=== PATIENT | female | born 1930 | race Caucasian/White ===

== ENCOUNTER 2016-10-13 19:38 | Inpatient (IN) | payer OTHER, MEDICARE ==
[~2016-10-13] VITALS: Ht 121.9 cm; Wt 50.3 kg
[~2016-10-13 19:38] MED LIST: ZOFRAN ODT4 MG SL
--- NOTE | 2016-10-13 20:07 | NUR ---
PT SENT TO ED FROM WALK IN S/P TRIP AND FALL AT HOME AT 3 PM THIS AFTERNOON. DENIES LOC. NO BLOOD THINNERS. STATES HAS SKIN TEAR TO LEFT ELBOW. GOOD ROM TO LEFT ELBOW. WAS BANDAGED AT WALK IN. STATES HIT HEAD WHEN SHE FELL. DENIES N/V. TOOK 1000 MG TYLENOL AT 1600 WITH GOOD RELIEF OF ELBOW PAIN
--- NOTE | 2016-10-13 21:05 | ED MVC/FALL/TRAUMA COMPLAINT ---
See Addendum History of Present Illness General Chief Complaint: Fall Stated Complaint: PT FALL AND HURT HER LEFT ARM Source: patient Exam Limitations: no limitations Vital Signs & Intake/Output Vital Signs & Intake/Output Vital Signs Date Time Temp Pulse Resp B/P B/P Pulse O2 O2 Flow FiO2 Mean Ox Delivery Rate 10/14 2203 98.6 96 18 148/65 99 10/13 2114 100 Room Air 10/13 2002 98.6 68 18 151/75 97 Room Air ED Intake and Output 10/14 0000 10/13 1200 Intake Total Output Total Balance Patient 99 lb 15.99 oz Weight Weight Reported by Patient Measurement Method Allergies Coded Allergies: cephalexin (RASH 10/13/16) clonazepam ("KNOCKED ME OUT" 10/13/16) gabapentin (UNKNOWN REACTION 10/13/16) morphine (GI UPSET, "KNOCKED ME OUT" 10/13/16) Reconcile Medications Ondansetron (Zofran Odt) 4 MG TAB.RAPDIS 1 TAB SL Q6-PRN PRN NAUSEA Triage Note: PT SENT TO ED FROM WALK IN S/P TRIP AND FALL AT HOME AT 3 PM THIS AFTERNOON. DENIES LOC. NO BLOOD THINNERS. STATES HAS SKIN TEAR TO LEFT ELBOW. GOOD ROM TO LEFT ELBOW. WAS BANDAGED AT WALK IN. STATES HIT HEAD WHEN SHE FELL. DENIES N/V. TOOK 1000 MG TYLENOL AT 1600 WITH GOOD RELIEF OF ELBOW PAIN Triage Nurses Notes Reviewed? yes Onset: Abrupt Duration: minute(s):, hour(s):, constant Timing: single episode today Severity: moderate Injuries/Fall Location: head, upper extremity Method of Injury: fall Loss of Consciousness: no loss of consciousness No Modifying Factors: none HPI: 86-year-old female comes into the emergency room for further evaluation after falling after missing a step. Patient reports that she missed 1 step and fell forward and hit her head into the door and as well as her left arm. Denies any loss of consciousness. Denies any headaches. Denies any anticoagulants or neck pain.patient has a skin tear to her left elbow. Patient went to the walk-in clinic and they sent her here for further evaluation. Denies any other associated symptoms. (TIM CARDONA,CRYSTAL) Past History Travel History Traveled to [place] past 21 day No Medical History Any Pertinent Medical History? see below for history EENT: SWALLOW ISSUES Cardiovascular: hypertension, hyperlipidemia Gastrointestinal: diverticulitis, GERD Endocrine: diabetes Other Medical Hx: Hypertension, hyperlipidemia, diabetes Tetanus Vaccine: 08/29/14 Surgical History Surgical History: non-contributory Psychosocial History What is your primary language Malay Tobacco Use: Never used ETOH Use: denies use Illicit Drug Use: denies illicit drug use Family History Hx Contributory? No (CRYSTAL CHAPMAN) Review of Systems Review of Systems Constitutional: Reports: no symptoms. Eyes: Reports: no symptoms. Ears, Nose, Throat, Mouth: Reports: no symptoms. Respiratory: Reports: no symptoms. Cardiovascular: Reports: no symptoms. Gastrointestinal/Abdominal: Reports: no symptoms. Genitourinary: Reports: no symptoms. Musculoskeletal: Reports: see HPI. Skin: Reports: no symptoms. Neurological/Psychological: Reports: see HPI. All Other Systems: Reviewed and Negative (CRYSTAL CHAPMAN) Physical Exam Physical Exam General Appearance: well developed/nourished, no apparent distress, alert, awake Head: atraumatic, normal appearance Eyes: Bilateral: PERRL, EOMI. Ears, Nose, Throat, Mouth: hearing grossly normal, moist mucous membrane Neck: normal inspection, supple, full range of motion, no midline tenderness Respiratory: normal breath sounds, no respiratory distress Back: normal range of motion Extremities: bruising to left upper humerus, bruising to left elbow, skin tear superficial epidermis, associated bleeding, Neurologic/Psych: awake, alert, oriented x 3, normal gait, normal mood/affect Skin: intact, normal color Core Measures ACS in differential dx? No Severe Sepsis Present: No Septic Shock Present: No (CRYSTAL CHAPMAN) Progress Differential Diagnosis: abd injury, C/T/L spine injury, ext injury, ICH, pelvis injury, pnemothorax, spinal cord injury Plan of Care: Orders Procedure Date/time Status Admit to inpatient 10/14 2355 Active Patient Data 10/13 2354 Active EKG 10/13 2250 Active PARTIAL THROMBOPLASTIN TIME 10/13 2224 Complete PROTHROMBIN TIME 10/13 2224 Complete COMPREHENSIVE METABOLIC PANEL 10/13 2224 Complete CBC WITHOUT DIFFERENTIAL 10/13 2224 Complete Laboratory Tests 10/13/16 2310: Anion Gap 14, Estimated GFR 60, BUN/Creatinine Ratio 25.6 H, Glucose 101 H, Calcium 10.0, Total Bilirubin 0.7, AST 27, ALT 35, Alkaline Phosphatase 156 H, Total Protein 7.3, Albumin 4.2, Globulin 3.1, Albumin/Globulin Ratio 1.4 10/13/16 2230: PT 11.0, INR 1.05, APTT 33, CBC w Diff NO MAN DIFF REQ, RBC 4.13 L, MCV 94.2, MCH 31.6 H, RDW 13.0, MPV 8.6, Gran % 73.2, Lymphocytes % 14.7 L, Monocytes % 9.1, Eosinophils % 2.6, Basophils % 0.4, Absolute Granulocytes 5.7, Absolute Lymphocytes 1.2, Absolute Monocytes 0.7 H, Absolute Eosinophils 0.2, Absolute Basophils 0, PUBS MCHC 33.5 Diagnostic Imaging: Viewed by Me: Radiology Read, CT Scan. Discussed w/RAD: Radiology Read, CT Scan. Radiology Impression: SERVICE DATE: 10/13/16 EXAM TYPE: RAD - XRY-ELBOW 3 OR MORE VIEWS, L; XRY-SHOULDER COMPLETE-LEFT EXAMINATION: XR SHOULDER, LEFT Left elbow series CLINICAL INFORMATION: Trauma fall COMPARISON: None TECHNIQUE: 3 views of the left shoulder 3 views of the left elbow FINDINGS: Left shoulder: There is superior subluxation of the humeral head with the bone appearing to touch the undersurface of the acromion indicative of rotator cuff tear. There is moderate acromioclavicular arthrosis. Possible mild arthrosis of the glenohumeral joint. The surrounding bone and soft tissues are unremarkable. Left elbow: The bone and joints of the elbow are normal. There is a small oval-shaped 6 x 3 x 3 mm calcification posterior and lateral to the proximal ulna of uncertain etiology likely benign and likely dystrophic related to prior soft tissue injury. IMPRESSION: Left shoulder: Moderate acromioclavicular arthrosis and possible mild arthrosis of glenohumeral joint. Probable rotator cuff tear given the superior subluxation of the humeral head Left elbow: Soft tissue calcification as described may reflect old soft tissue trauma DICTATED BY: ALEXANDREA PUENTE MD DATE/TIME DICTATED:10/13/162148 [employer]: SELENA DATE/TIME TRANSCRIBED:10/13/162148 CONFIDENTIAL, DO NOT COPY WITHOUT APPROPRIATE AUTHORIZATION., SERVICE DATE: 10/13/16 EXAM TYPE: CAT - CT HEAD WO IV CONTRAST EXAMINATION: CT HEAD WITHOUT CONTRAST CLINICAL INFORMATION: Trauma. Fall. COMPARISON: CT scan of the head 02/28/2014. TECHNIQUE : Contiguous axial imaging was performed from the skull base to vertex without intravenous administration of contrast. DLP: 529.16 mGy-cm FINDINGS: There is increased density in a sulcus in the right parietal region (image 34/56, series 2 and image 148/199, series 601). This is consistent with a small amount of subarachnoid hemorrhage. Density in this region was not demonstrated on the prior study. There is no evidence of a subdural or epidural hematoma. There is no evidence of an acute territorial infarct. No abnormal mass effect or midline shift is seen. Brown to white matter differentiation is well preserved. The ventricles and sulci are slightly commensurately prominent consistent with mild diffuse volume loss. Patchy low attenuation in the periventricular white matter is consistent with chronic microvascular ischemic changes. There are no acute fractures. 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 There are relatively extensive atheromatous calcifications of the cavernous internal carotid arteries bilaterally. 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 There are no large scalp contusions or hematomas. The mastoid air cells and visualized portions of the paranasal sinuses are well aerated. IMPRESSION: 1. There is increased density in a sulcus in the right parietal region, which is consistent with a small amount of subarachnoid hemorrhage. 2. No subdural or epidural collections are demonstrated. 3. There are no fractures or large scalp contusions. 4. This critical result was discussed with Crystal Casas by telephone on 10/13/2016 10:21 PM and it was ascertained that the content and urgency of the report was understood at the time of direct communication. DICTATED BY: CIRILO TORRES MD DATE/TIME DICTATED:10/13/162142 [employer] :SELENA DATE/TIME TRANSCRIBED:10/13/162142 Initial ED EKG: normal intervals, normal p-waves, normal sinus rhythm, rate (90) (CRYSTAL CHAPMAN) Departure Departure Disposition: STILL A PATIENT Condition: Stable Clinical Impression Primary Impression: Subarachnoid hemorrhage Secondary Impressions: Skin abrasion Referrals: NORRIS LESTER MD (PCP/Family) Departure Forms: Customer Survey General Discharge Information Admission Note Spoke With: MARY CANO MD Documentation of Exam: Documentation of any treatments & extenuating circumstances including Concerns Regarding Discharge (functional status, medication knowledge or non-compliance, living conditions, etc.) that warrant an admission rather than observation: Patient has acute subarachnoid hemorrhage. Patient will require repeat CT scan. Neurosurgery consult. Close observation. Serial vital sign checks. Hospitalist wants the patient to be observed in the ICU overnight. (CRYSTAL CHAPMAN) PA/PRODUCTION WELDER Co-Sign Statement Statement: ED Attending supervision documentation- x I saw and evaluated the patient. I have also reviewed all the pertinent lab results and diagnostic results. I agree with the findings and the plan of care as documented in the PA's/PRODUCTION WELDER's documentation. [] I have reviewed the ED Record and agree with the PA's/PRODUCTION WELDER's documentation. [] Additions or exceptions (if any) to the PAs/PRODUCTION WELDER's note and plan are summarized below: [] (ALISON MCGOVERN,CLAY)
--- NOTE | 2016-10-13 21:14 | NUR ---
DULCE Gil IN RM FOR EVAL, THIS RN APPLIED XEROFORM AND AN HEMANT WRAP TO PTS LEFT ELBOW 3X3? SKIN TEAR. PT TO CT /XRAY VIA STRETCHER
--- NOTE | 2016-10-13 21:57 | RADIOLOGY REPORT ---
EXAMINATION: XR SHOULDER, LEFT Left elbow series CLINICAL INFORMATION: Trauma fall COMPARISON: None TECHNIQUE: 3 views of the left shoulder 3 views of the left elbow FINDINGS: Left shoulder: There is superior subluxation of the humeral head with the bone appearing to touch the undersurface of the acromion indicative of rotator cuff tear. There is moderate acromioclavicular arthrosis. Possible mild arthrosis of the glenohumeral joint. The surrounding bone and soft tissues are unremarkable. Left elbow: The bone and joints of the elbow are normal. There is a small oval-shaped 6 x 3 x 3 mm calcification posterior and lateral to the proximal ulna of uncertain etiology likely benign and likely dystrophic related to prior soft tissue injury. IMPRESSION: Left shoulder: Moderate acromioclavicular arthrosis and possible mild arthrosis of glenohumeral joint. Probable rotator cuff tear given the superior subluxation of the humeral head Left elbow: Soft tissue calcification as described may reflect old soft tissue trauma
--- NOTE | 2016-10-13 22:03 | NUR ---
PT MEDICATED WITH TETANUS IN RIGHT ARM. LIGHTS DIMMED AND TV TURNED ON FOR COMFORT\.
--- NOTE | 2016-10-13 22:25 | CT SCAN REPORT ---
EXAMINATION: CT HEAD WITHOUT CONTRAST CLINICAL INFORMATION: Trauma. Fall. COMPARISON: CT scan of the head 02/28/2014. TECHNIQUE: Contiguous axial imaging was performed from the skull base to vertex without intravenous administration of contrast. DLP: 529.16 mGy-cm FINDINGS: There is increased density in a sulcus in the right parietal region (image 34/56, series 2 and image 148/199, series 601). This is consistent with a small amount of subarachnoid hemorrhage. Density in this region was not demonstrated on the prior study. There is no evidence of a subdural or epidural hematoma. There is no evidence of an acute territorial infarct. No abnormal mass effect or midline shift is seen. Brown to white matter differentiation is well preserved. The ventricles and sulci are slightly commensurately prominent consistent with mild diffuse volume loss. Patchy low attenuation in the periventricular white matter is consistent with chronic microvascular ischemic changes. There are no acute fractures. 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 There are relatively extensive atheromatous calcifications of the cavernous internal carotid arteries bilaterally. 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 There are no large scalp contusions or hematomas. The mastoid air cells and visualized portions of the paranasal sinuses are well aerated. IMPRESSION: 1. There is increased density in a sulcus in the right parietal region, which is consistent with a small amount of subarachnoid hemorrhage. 2. No subdural or epidural collections are demonstrated. 3. There are no fractures or large scalp contusions. 4. This critical result was discussed with Han Casas by telephone on 10/13/2016 10:21 PM and it was ascertained that the content and urgency of the report was understood at the time of direct communication.
--- NOTE | 2016-10-13 22:27 | NUR ---
THIS RN ESTABLISHED IV ACCESS IN THE RFA#22, LABS DRAWN (SST, LAV, DONOVAN, BLUE,PINK)
--- NOTE | 2016-10-13 22:28 | NUR ---
PTS IN RM, THIS RNAND DULCE Gil DID NOT SEE ANY LACS/ BUMPS TO PTS HEAD.
[2016-10-13 22:37] LABS: ABSOLUTE BASOPHIL COUNT 0 /CUMM (0.0-0.2); ABSOLUTE EOSINOPHIL COUNT 0.2 /CUMM (0.0-0.7); ABSOLUTE GRANULOCYTE CT 5.7 /CUMM (1.4-6.5); ABSOLUTE LYMPH COUNT 1.2 /CUMM (1.2-3.4); ABSOLUTE MONOCYTE COUNT 0.7 /CUMM (0.10-0.60); BASOPHIL % 0.4 % (0.0-2.0); EOSINOPHIL % 2.6 % (0-5); GRANULOCYTE % 73.2 % (42.2-75.2); HEMATOCRIT 38.9 % (37-47); MEAN CORPUSCULAR HGB 31.6 PG (27.0-31.0); MEAN CORPUSCULAR HGB CONC 33.5 G/DL (33.0-37.0); MEAN CORPUSCULAR VOLUME 94.2 FL (81.0-99.0); MEAN PLATELET VOLUME 8.6 FL (7.4-10.4); PLATELET COUNT 228 /CUMM (130-400); RED BLOOD CELL CT 4.13 /CUMM (4.20-5.40); WHITE BLOOD CELL COUNT 7.8 /CUMM (4.8-10.8)
--- NOTE | 2016-10-13 22:53 | NUR ---
PER LAB, SST IS HEMOLYZED AND NEEDS TO BE REDRAWN.
[2016-10-13 22:56] LABS: PTT 33 SEC (25-37)
--- NOTE | 2016-10-13 22:58 | NUR ---
THIS RN KELLEY AND SENT SST REDRAW
--- NOTE | 2016-10-13 23:13 | NUR ---
REPEAT TROP DRAWN AND SENT BY THIS RN
--- NOTE | 2016-10-14 | History & Physical ---
ELENO LARSEN MD 10/13/16 3533: General Information and HPI MD Statement: I have seen and personally examined GUCCI BRYAN and documented this H&P. The patient is a 86 year old F who presented with a patient stated chief complaint of fall. Source of Information: patient Exam Limitations: poor historian History of Present Illness: Ms. Bryan is a pleasant 86 year old female with PMH HTN, HLD, GERD, type 2 DM and previous episode of diverticulitis who presents status post fall. Patient reports that this morning she was walking down her stairs when she tripped and fell down 2 stairs. This resulted in a head, left shoulder and left elbow strike. Patient is not on blood thinners, did not lose consciousness during the event, no loss of bowel/bladder incontinence, had no preceding dizziness/light headedness, and had no subsequent headache. Gucci was unable to lift herself off the floor however, as she reported she was too weak at that time. She remained on the floor and waited for 60 minutes until her grandson was able to come over and lift her. Gucci does report one prior fall in her garden about 1 year ago where she lost her balance and a plant was knocked over. At that time, she injured her right shoulder which she elected not to repair. Currently, she denies fever, chills, vision changes, headache, weakness, difficulty ambulating, chest pain, shortness of breath, abdominal pain, nausea, vomiting. She does admit to left forearm skin tear, left shoulder brusing and generalized feeling of being unwell once this afternoon for which she took tylenol. She did endorse one episode of dizziness during micturition. Past surgical history is significant for hysterectomy for benign reasons, cholecystectomy and partial coccyx bone removal. Social history is negative for current or prior tobacco use, alcohol use or illicit drug use. She lives at home with her and ambulates without assistance. She completes all of her ADLs and IADLs independently. Of note, patient requests that if any deterioration in her condition were to happen, she would like her structural steel worker informed. Father Jayme at [facility], . Allergies/Medications Allergies: Coded Allergies: cephalexin (RASH 10/13/16) clonazepam ("KNOCKED ME OUT" 10/13/16) gabapentin (UNKNOWN REACTION 10/13/16) morphine (GI UPSET, "KNOCKED ME OUT" 10/13/16) Compliance With Home Meds: FAIR Past History Travel History Traveled to [place] past 21 day No Medical History EENT: SWALLOW ISSUES Cardiovascular: hypertension, hyperlipidemia Gastrointestinal: diverticulitis, GERD Endocrine: diabetes Other Medical Hx: Hypertension, hyperlipidemia, diabetes Tetanus Vaccine: 10/13/16 Surgical History Surgical History: non-contributory Past Family/Social History Psychosocial History Where do you live? Home Who Do You Live With? spouse Services at Home: None Primary Language: German Smoking Status: Never Smoked ETOH Use: denies use Illicit Drug Use: denies illicit drug use Living Will? yes Functional Ability ADLs Independent: dressing, eating, toileting, bathing. Ambulation: independent IADLs Independent: shopping, housework, finances, food prep, telephone, transportation , medication admin. Review of Systems Review of Systems Constitutional: Denies: chills, fever, malaise, weakness. EENTM: Denies: blurred vision, double vision, visual changes, hearing changes. Cardiovascular: Denies: chest pain, palpitations, syncope. Respiratory: Denies: cough, short of breath. GI: Denies: abdominal pain, nausea, vomiting. Genitourinary: Denies: dysuria. Musculoskeletal: Reports: gout, joint pain, muscle pain. Skin: Reports: lesions (Left upper arm abrasion/bruise). Neurological/Psychological: Denies: ataxia, confusion, headache, numbness, paresthesia. Hematologic/Endocrine: Reports: bruising, bleeding. Immunologic/Allergic: Denies: splenectomy. All Other Systems: Reviewed and Negative Exam & Diagnostic Data Last 24 Hrs of Vital Signs/I&O Vital Signs Date Time Temp Pulse Resp B/P B/P Pulse O2 O2 Flow FiO2 Mean Ox Delivery Rate 10/14 0024 98.6 60 18 157/70 98 Room Air 10/134 98.6 96 18 148/65 99 10/13 2114 100 Room Air 10/13 2002 98.6 68 18 151/75 97 Room Air Intake & Output 10/14 0800 10/14 0000 10/13 1600 Intake Total Output Total 200 Balance -200 Output, Urine 200 Patient 99 lb 15.99 oz Weight Weight Reported by Patient Measurement Method Physical Exam General Appearance Alert, Oriented X3, Cooperative, No Acute Distress Skin Left anterior shoulder bruise. Left lower arm and left upper forearm wrapped in janel bandage. Skin Temp/Moisture Exam: Warm/Dry Sepsis Skin Exam (color): Normal for Ethnicity HEENT Atraumatic, PERRLA, EOMI, Mucous Membr. moist/pink Neck Supple, +2 Carotid Pulse wo Bruit Lymphatic Cervical nl Cardiovascular Regular Rate, Normal S1, Normal S2, 1-2/6 systolic murmur Lungs Clear to Auscultation, Normal Air Movement Abdomen Normal Bowel Sounds, Soft, No Tenderness Neurological Normal Speech, Strength at 5/5 X4 Ext, Normal Tone, Sensation Intact, Cranial Nerves 3-12 NL Extremities No Clubbing, No Cyanosis, No Edema, Normal Pulses Vascular Pulses Symmetrical Sepsis Peripheral Pulse Location: Dorsalis Pedis Sepsis Peripheral Pulse Exam: Normal Last 24 Hrs of Labs/Gus: Laboratory Tests 10/13/16 2310: Anion Gap 14, Estimated GFR 60, BUN/Creatinine Ratio 25.6 H, Glucose 101 H, Calcium 10.0, Total Bilirubin 0.7, AST 27, ALT 35, Alkaline Phosphatase 156 H, Total Protein 7.3, Albumin 4.2, Globulin 3.1, Albumin/Globulin Ratio 1.4 10/13/16 2230: PT 11.0, INR 1.05, APTT 33, CBC w Diff NO MAN DIFF REQ, RBC 4.13 L, MCV 94.2, MCH 31.6 H, RDW 13.0, MPV 8.6, Gran % 73.2, Lymphocytes % 14.7 L, Monocytes % 9.1, Eosinophils % 2.6, Basophils % 0.4, Absolute Granulocytes 5.7, Absolute Lymphocytes 1.2, Absolute Monocytes 0.7 H, Absolute Eosinophils 0.2, Absolute Basophils 0, PUBS MCHC 33.5 Diagnostic Data EKG Results NSR, HR 62 bpm, QTC 419, PVCs, T wave inv aVL. CXR Results Left upper extremity XR: IMPRESSION: Left shoulder: Moderate acromioclavicular arthrosis and possible mild arthrosis of glenohumeral joint. Probable rotator cuff tear given the superior subluxation of the humeral head Left elbow: Soft tissue calcification as described may reflect old soft tissue trauma Other Results Head CT: IMPRESSION: 1. There is increased density in a sulcus in the right parietal region, which is consistent with a small amount of subarachnoid hemorrhage. 2. No subdural or epidural collections are demonstrated. 3. There are no fractures or large scalp contusions. Assessment/Plan Assessment: Ms. Bryan is a pleasant 86 year old female with PMH HTN, HLD, GERD, type 2 DM and previous episode of diverticulitis who presents status post fall with abrasions to her left upper extremity. The fall was down two steps and caused by "missing a step". She was noted to hit her head, left shoulder and left elbow during this and remained on the ground for 1 hour before help was able to lift her up. On imaging of the patient's head while in the ED, a small subarachnoid hemorrhage was noted. Patient is currently asymptomatic without any complaints, specifically no dizziness, headache, vision changes, tinnitus or weakness. In the ED: T 98.6, HR 68, RR 18, BP 151/75 and O2 saturation of 97% on room air. Labs showed unremarkable CBC and BEP significant for BUN 23, Glu 101, alk phos 156 and INR 1.05. Xray of left upper extremity showed left shoulder moderate AC arthrosis and possible arthrosis of glenohumeral joint. Probably rotator cuff tear. Left elbow showed soft tissue calcification representing likely old soft tissue trauma. Head CT showed small subarachnoid hemorrhage in a sulcus in the right parietal region. No subdural or epidural collections. No fractures or scalp contusions. Patient is admitted to the ICU and the following is the management: 1. Small right parietal subarachnoid hemorrhage * Due to fall down 2 steps with subsequent trauma to her head * Neuro exam completely non-focal, patient AAOx4 and age appropriate * Close monitoring in ICU for any change in mental status or development of new neurological symptoms. If any changes noted, consider stat repeat head CT. * Neurochecks Q1H, keep NPO for now * Check CK * Strict blood pressure control * Neurosurgery consult with Dr. Nito MD. placed for AM, follow up recommendations * Head CT ordered for afternoon of 10/14, discuss with neurosurgery if this is needed * Hold all pharm anticoagulation, ALPS for DVTP 2. Mechanical fall with left upper extremity contusion, arthrosis and rotator cuff pathologyl * Likely a mechanical fall, however will keep patient on monitoring manager * Skin tear not suitable to suturing, local wound care * Pain control with tylenol for mild pain, morphine for severe pain * PT consult in AM * Fall precuations 3. HTN, HLD * Monitor vital signs closely * Patient unsure of medications, to bring list of home meds for AM team to confirm * Lipitor 10 mg PO daily and amlodipine 2.5 mg PO daily for now 4. DM, type 2 * Patient reports she is on metformin, hold for now * NPO NSS * Accuchecks Q6 FULL CODE DVTP: ALPS Diet: NPO Mild pain pathway As Ranked By This Provider Problem List: 1. Contusion, shoulder /upper arm 2. Fall 3. Avulsion of skin of left elbow 4. Subarachnoid hemorrhage Core Measures/Miscellaneous Acute Coronary Syndrome ACS Diagnosis: No Cerebrovascular Accident CVA/TIA Diagnosis: No Congestive Heart Failure CHF Diagnosis: No Venous Thromboembolism VTE Risk Factors: Age > 40 No [facility] VTE prophylaxis d/t: No contraindications No VTE Pharm Prophylaxis d/t: Active bleeding VTE Diagnosis: No VTE Type: NONE VTE Confirmed by (Test): NONE Severe Sepsis Severe Sepsis Present: No Septic Shock Septic Shock Present: No Miscellaneous Documentation Attending Case [facility] Patient sees these Specialists None. Level of Patient Care: Critical Care (CRI) SAKSHI MUÑOZ 10/14/16 0047: General Information and HPI Allergies/Medications Home Med list Amlodipine (Norvasc) 2.5 MG TABLET 1 TAB PO DAILY HTN (Reported) Atorvastatin Calcium (Lipitor) 10 MG TABLET 1 TAB PO DAILY HYPERLIPIDEMIA ( Reported) Ondansetron (Zofran Odt) 4 MG TAB.RAPDIS 1 TAB SL Q6-PRN PRN NAUSEA Resident Review Statement Resident Statement: examined this patient, discussed with compensation intern, agreed with compensation intern Other Findings: Mrs. Bryan is an 86 yo women with PMHx. significant for HTN, HLD, GERD, type 2 DM and diverticulitis presented to ED for evaluation after mechanical fall. Patient stated that today while she going down the stairs she missed a couple steps and fell on her head and Lt. shoulder, she denies any LOC, after the fall she remains in the floor as she felt weak, could't support her self to get up, she was assissted by her and grand son later, she went to walk in clinic who refer her to . Prior to fall she denies any dizziness, vision changes, heart racing, chest pain, weakness, no other area injured. Patient in independent on her baseline, she did had any recent fall. She had a bruise at left shoulder and skin laceration on the left arm. She report some discomfort at the left arm, pain on the lt. shoulder resolved, she was completely asymptomatic during the encounter, review of system was negative. Vitals at ED was stable except for BP:151/75, examination: unremarkable, no focal neurological finding, she had a bruise over the left shoulder, and her left arm injury covered with clean gauze and bandages. Labs as above, EKG: SR, T -wave inversion @AVL, III. imaging: head CT: showed SAH in the Rt. parietal region, no fracture or large scalp contusion, other imaging as above. Assessment: #Mechanical fall with a resultant SAH @ parietal region #Hx. of diabetes #Hx. of HTN Plan: -Will admitt to ICU for close monitoring and frequent neurocheck -Consult with intesive care team at am -Neurovascular consult at am -Case was discussed by ED physician with oncall neurovaculr surgeon who report that no acute intervention at the moment -Will repeat imaging (CT-head in the afternoon to assess the resolution or any worsening of the Hge -Monitor BP, aim <140/80 -Avoid antiplatelete and antithrombotic meds -NPO over night, assess at am, and order diet if stable -Please confirm her home meds, she can't remember her med. list, her went home with the list please contact him -Insulin sliding scale, accucheck -Pain management -PT eval. -Fall precaution ALPS for DVT ppx Full code RACHAEL MCGOVERN, [facility] 10/14/16 0225: Attending MD Review Statement Attending Statement Attending MD Statement: examined this patient, discuss w/resident/PA/SPRINKLER FITTER APPRENTICE, agreed w/resident/PA/SPRINKLER FITTER APPRENTICE, reviewed EMR data (avail) Attending Assessment/Plan: 86 yo F with h/o HTN, T2DM, HLD, GERD, who is brought in to the ER s/p mechanical fall down the stairs at around 3 pm, with associated head strike but no loss of consciousness. She required help to get herself off the floor, was a litte dizzy after the episode but recovered completely. No headache, vision changes. She went to the Urgent Care center as her left arm was bruised, they sent her in to [place] ER for further evaluation. She denies chest pain, palpitations, dyspnea. She is not on aspirin or any blood thinners. Vitals are stable, BP 148/65. Exam: AAO, Pupils equal and RTL. Chest b/l clear, Heart S1S2 regular, systolic murmur+. Nonfocal neuro exam. Bruise noted to left shoulder, left elbow with superficial skin tear. Labs: BUN 23, INR 1.05, trop pending. EKG: Sinus rhythm, no acute changes. Xray: Left elbow: soft tissue calcification, ?old soft tissue trauma. Left shoulder: moderate acromioclavicular arthrosis. CT head: small right parietal subarachnoid hemorrhage, no subdural or epidural collections, no fractures or large scalp contusions. 1. Mechanical fall, subarachnoid hemorrhage. Hemodynamically stable, no altered mentation. ICU admit, neurochecks, fallprecautions, repeat CT head in 24 hours, Neurosurgery consult. Dr. Beauchamp was contacted by ER, no acute intervention at this point. Monitor for mental status change, headache, vision changes. Keep SBP < 140 mmHg. Resume amlodipine. Left elbow bruise/skin tear local wound care. Pain management. PT eval in AM. Keep patient NPO overnight. [facility] consult (Dr. Mccoy was informed by ER). 2. T2DM. Hold metformin, maintain on accucheks and insulin NPO SS. DVT ppx Alps. Full code. Please confirm CMR in AM and resume home medications. TTS > 40 mins
--- NOTE | 2016-10-14 00:42 | NUR ---
LETI LIAO ESTABLISHED IV SITE #2 IN RW #20.
--- NOTE | 2016-10-14 00:52 | NUR ---
BED 109
--- NOTE | 2016-10-14 00:54 | NUR ---
HOUSE STAFF IN FOR EVAL
--- NOTE | 2016-10-14 01:15 | NUR ---
THIS RN GAVE REPORT TO STEF OR PETER.
--- NOTE | 2016-10-14 01:33 | Admission Certification ---
Admission Certification Certification Statement - As attending physician, I certify that at the time of - admission, based on clinical presentation, severity of - symptoms, need for further diagnostic testing and - therapeutic interventions, and risk of adverse outcomes - without in-hospital treatment, in my clinical assessment, - this patient requires an acute hospital stay for a minimum - of two nights or longer. I have also considered psychsocial - factors such as support system, advanced age, financial - issues, cognitive issues, and failed out-patient treatments, - past re-admission history, safety of patient, and lack of - compliance as applicable. Specific rationale supporting this admission is: Mechanical fall, subarachnoid hemorrhage needs ICU level of care.
[2016-10-14 01:49] VITALS: BP 120/80
[2016-10-14] MEDS ORDERED: NORVASC2.5 M1 PO (01:51)
[2016-10-14] MEDS ORDERED: LIPITOR10 M1 PO (01:51)
--- NOTE | 2016-10-14 02:13 | NUR ---
ADMITTED AN 86 YEAR OLD FEMALE WHO FELL AT HOME. NO LOC. PT AWAKE AND ALERT, DENIES PAIN AT THIS TIME. NSR 70'S, MANUAL BP 120/80. SHE HAS A SKIN TEAR ON HER LEFT ELBOW, DRSSSING DRY AND INTACT. HER LEFT SHOULDER IS ALSO BRUISED FROM THE FALL. CT OF THE HEAD SHOWED SMALL BLEED ON THE RIGHT PARIETAL REGION. COMFORTABLE IN BED.
[2016-10-14 05:07] LABS: ABSOLUTE BASOPHIL COUNT 0 /CUMM (0.0-0.2); ABSOLUTE EOSINOPHIL COUNT 0.2 /CUMM (0.0-0.7); ABSOLUTE GRANULOCYTE CT 4.7 /CUMM (1.4-6.5); ABSOLUTE MONOCYTE COUNT 0.6 /CUMM (0.10-0.60); BASOPHIL % 0.4 % (0.0-2.0); EOSINOPHIL % 3.8 % (0-5); GRANULOCYTE % 71.4 % (42.2-75.2); HEMATOCRIT 35.7 % (37-47); MEAN CORPUSCULAR HGB 32.7 PG (27.0-31.0); MEAN CORPUSCULAR HGB CONC 34.7 G/DL (33.0-37.0); MEAN CORPUSCULAR VOLUME 94.2 FL (81.0-99.0); MEAN PLATELET VOLUME 9.2 FL (7.4-10.4); PLATELET COUNT 225 /CUMM (130-400); RBC DISTRIBUTION WIDTH 12.9 % (11.5-14.5); RED BLOOD CELL CT 3.79 /CUMM (4.20-5.40); WHITE BLOOD CELL COUNT 6.6 /CUMM (4.8-10.8)
[2016-10-14 08:00] VITALS: BP 120/74
--- NOTE | 2016-10-14 08:14 | NUR ---
0800: RECEIVED PT IN BED. A+OX3, PUPILS EQUAL REACTIVE. SLIGHT HEADACHE. DENIES BLURRY VISION. NO DIZZINESS. NSR ON MONITOR. VSS. LUNGS CLEAR, ON RA. DENIES SOB. ABDOMEN SOFT, +BS. PT OOB TO BATHROOM WITH MINIMAL ASSISTANCE, VOIDED IN TOILET. +FLATUS. REQUESTING TO EAT. HOUSE STAFF AWARE PT IS NPO, ? DIET. SKIN TEAR TO LEFT ELBOW, DRESSING IN PLACE. SKIN OTHERWISE INTACT. ALPS ON. PT OOB TO CHAIR. TO HAVE HEAD CT AT 3PM.
--- NOTE | 2016-10-14 08:49 | Event Note ---
Event Note Event Note: Contacted by neurosurgeon Dr. Beauchamp regarding the management for the patient' s SAH. Dr. Beauchamp advised that given the miniscule size of hemorrhage there is no surgical intervention needed as long as the patient remains neurologically intact and hemodynamically stable. Dr. Beauchamp recommended that patient be discharged if patient is medically stable.
--- NOTE | 2016-10-14 09:10 | NUR ---
EKG DONE. DR BAZAN AT BEDSIDE.
--- NOTE | 2016-10-14 10:25 | Patient Discharge Instructions ---
Discharge Instructions General Discharge Information Special Instructions: Please follow up with PCP upon discharge. Please return to ER in case of worsening headache, weakness, lethargy, vision, speech (neurological deficiet) Please use walker or cane at home to ambulate. Local wound care for left arm tear, daily dressing change with Adaptic. Acute Coronary Syndrome Inclusion Criteria At DC or during hospital stay patient has or had the following: ACS DIAGNOSIS No Discharge Core Measures Meds if any: Prescribed or Continued at Discharge Meds if any: NOT Prescribed or Continued at Discharge Congestive Heart Failure Inclusion Criteria At DC or during hospital stay patient has or had the following: CHF DIAGNOSIS No Discharge Core Measures Meds if any: Prescribed or Continued at Discharge Meds if any: NOT Prescribed or Continued at Discharge Cerebrovascular accident Inclusion Criteria At DC or during hospital stay patient has or had the following: CVA/TIA Diagnosis No Discharge Core Measures Meds if any: Prescribed or Continued at Discharge Meds if any: NOT Prescribed or Continued at Discharge Venous thromboembolism Inclusion Criteria VTE Diagnosis No VTE Type NONE VTE Confirmed by (Test) NONE Discharge Core Measures - Per Current guidelines, there needs to be overlap - treatment for the first 5 days of Warfarin therapy. - If discharged on Warfarin prior to 5 days of - overlap therapy, the patient will need to be - assessed for post discharge needs including - *Post discharge parental anticoagulation - *Warfarin and/or parental anticoagulation education - *Follow up date to check INR post discharge At least 5 days overlap therapy as Inpatient No Meds if any: Prescribed or Continued at Discharge Note: Overlap Therapy is Warfarin and Anticoagulant Meds if any: NOT Prescribed or Continued at Discharge
[2016-10-14] MEDS ORDERED: DITROPAN XL10 M1 PO (10:34)
[2016-10-14] MEDS ORDERED: PANTOPRAZOLE SO40 M1 PO (10:35)
[2016-10-14] MEDS ORDERED: METFORMIN HCL500 M2 PO (10:35)
--- NOTE | 2016-10-14 11:14 | NUR ---
PT COMPLAINING OF LIGHTHEADEDNESS AND BLURRY VISION. B/P 130/60. MD CONNELLY AT BEDSIDE TO ASSESS.
[2016-10-14 16:00] VITALS: BP 130/68
[2016-10-14 22:38] VITALS: BP 136/74
--- NOTE | 2016-10-15 00:52 | NUR ---
PT REPORTS NEW PAIN 8/10 H/A. THEN REPORTS NAUSEA ABOUT TWO MINUTES AFTER THAT. MD LARSEN NOTIFIED.
[2016-10-15 01:17] VITALS: BP 150/70
--- NOTE | 2016-10-15 01:21 | Event Note ---
Event Note Event Note: Notified by nursing staff around 12:45 AM that patient had developed acute onset headache. This headache was frontal, 8/10 and associated with nausea and mild neck pain. Vital signs stable. Patient appeared in no acute distress laying in bed. Neuro exam was nonfocal, with CN 3-12 grossly intact, muscle strength appropriate and patient AAOx3. Patient discussed with resident and we will order stat head CT to rule out worsening of SAH or new bleed. Patient requests only tylenol for pain. Head CT shows stable appearance of SAH. Will continue with pain management as needed and order zofran for nausea. Will monitor patient closely throughout the night and make AM team aware of overnight events.
--- NOTE | 2016-10-15 01:28 | NUR ---
PT OFF FLOOR FOR STAT HEAD CT.
--- NOTE | 2016-10-15 01:45 | CT SCAN REPORT ---
EXAMINATION: CT HEAD WITHOUT CONTRAST CLINICAL INFORMATION: Severe headache. Nausea and neck pain. COMPARISON: 10/13/2016 TECHNIQUE: Contiguous axial imaging was performed from the skull base to vertex without intravenous administration of contrast. DLP: 601 mGy-cm FINDINGS: There is redemonstration of a small amount of right parietal subarachnoid hemorrhage. This is unchanged from the previous study. There is no new hemorrhage. There is no evidence of acute intraparenchymal hemorrhage or territorial infarction. No abnormal mass effect or midline shift is seen. Brown to white matter differentiation is well preserved. The ventricles are normal in size. Mild patchy periventricular and deep white matter hypoattenuation is consistent with small vessel ischemic change. The osseous structures and soft tissues are normal. The mastoid air cells and visualized portions of the paranasal sinuses are well aerated. IMPRESSION: Stable small right parietal subarachnoid hemorrhage. No new hemorrhage.
[2016-10-15 07:09] VITALS: BP 120/60
[2016-10-15 08:07] LABS: ABSOLUTE BASOPHIL COUNT 0 /CUMM (0.0-0.2); ABSOLUTE EOSINOPHIL COUNT 0.3 /CUMM (0.0-0.7); ABSOLUTE LYMPH COUNT 1.1 /CUMM (1.2-3.4); ABSOLUTE MONOCYTE COUNT 0.5 /CUMM (0.10-0.60); BASOPHIL % 0.4 % (0.0-2.0); EOSINOPHIL % 4.5 % (0-5); GRANULOCYTE % 68.1 % (42.2-75.2); HEMATOCRIT 34.8 % (37-47); MEAN CORPUSCULAR HGB 32.5 PG (27.0-31.0); MEAN CORPUSCULAR HGB CONC 34.3 G/DL (33.0-37.0); MEAN CORPUSCULAR VOLUME 94.7 FL (81.0-99.0); PLATELET COUNT 221 /CUMM (130-400); RBC DISTRIBUTION WIDTH 13.1 % (11.5-14.5); RED BLOOD CELL CT 3.68 /CUMM (4.20-5.40); WHITE BLOOD CELL COUNT 5.9 /CUMM (4.8-10.8)
--- NOTE | 2016-10-15 08:17 | PN- Housestaff ---
CARSON MCGOVERN,DIANA 10/15/16 0817: Subjective Follow-up For: #Mechanical fall with a resultant SAH @ parietal region #Hx. of diabetes #Hx. of HTN Subjective: Patient seen and examined at bedside. She reports feeling well with no complaints. Had a bad headache last night but it's pretty much resolved this morning, currently at 0-1, well-controlled with Tylenol. Denies any f/c, chest pain, dyspnea, palpitations, dizziness/lightheadedness, abdominal pain, n/v/c/d. She says she is ready to go home. Review of Systems Constitutional: Reports: see HPI. Objective Last 24 Hrs of Vital Signs/I&O Vital Signs Date Time Temp Pulse Resp B/P B/P Pulse O2 O2 Flow FiO2 Mean Ox Delivery Rate 10/15 0709 97.9 66 20 120/60 96 Room Air 10/15 0117 97.9 72 20 150/70 96 Room Air 10/14 2238 98.2 72 20 136/74 96 Room Air 10/14 2000 Room Air 10/14 1600 98.5 74 18 130/68 96 Room Air 10/14 0943 75 161/59 Intake & Output 10/15 1600 10/15 0800 10/15 0000 Intake Total 260 140 Output Total Balance 260 140 Intake, IV 20 20 Intake, Oral 240 120 Physical Exam General Appearance: Alert, Cooperative, No Acute Distress Other Physical Findings: Eyes: Bilateral: normal appearance, PERRL, EOMI. Ears, Nose, Throat: normal pharynx, normal ENT inspection, hearing grossly normal, moist mucus membranes Neck: normal inspection, supple, full range of motion Respiratory: normal breath sounds, chest non-tender, lungs clear Cardiovascular: regular rate/rhythm Gastrointestinal: normal bowel sounds, soft, non-tender, no organomegaly Back: normal inspection Extremities: normal inspection, Left Shoulder wrapped in Ez wrap s/p Contusion Neurologic/Psych: no motor/sensory deficits, awake, alert, oriented x 3, crutching contractor II- XII nml as tested Cranial Nerves: normal hearing, normal speech, PERRL Skin: intact Lymphatic: no anterior cervical erich Current Medications: Current Medications Sig/Monae Start time Last Medication Dose Route Stop Time Status Admin Acetaminophen 650 MG Q6P PRN 10/14 0130 AC 10/15 PO 0047 Amlodipine Besylate 2.5 MG DAILY 10/14 1000 AC 10/14 PO 0943 Atorvastatin Calcium 10 MG DAILY 10/14 1000 AC PO Insulin Aspart 0 TIDAC 10/14 1200 AC 10/14 SC 1303 Insulin Human Regular 0 Q6 10/14 0600 DC SC Ondansetron HCl 4 MG ONCE ONE 10/15 0200 DC 10/15 IV 10/15 0201 0153 Last 24 Hrs of Lab/Gus Results Last 24 Hrs of Labs/Mics: Laboratory Tests 10/15/16 0600: Anion Gap 12, Estimated GFR 60, BUN/Creatinine Ratio 22.2, Creatine Kinase 126, CBC w Diff NO MAN DIFF REQ, RBC 3.68 L, MCV 94.7, MCH 32.5 H, RDW 13.1, MPV 9.0, Gran % 68.1, Lymphocytes % 18.7 L, Monocytes % 8.3, Eosinophils % 4.5, Basophils % 0.4, Absolute Granulocytes 4.0, Absolute Lymphocytes 1.1 L, Absolute Monocytes 0.5, Absolute Eosinophils 0.3, Absolute Basophils 0, PUBS MCHC 34.3 Assessment/Plan Assessment: Ms Bryan is an 86-year-old female with past medical history of DM, hypertension, hyperlipidemia, GERD, BPPV and an episode of diverticulitis who presented to the emergency department on 10/13/2016 after a visit to the walk-in clinic prompted her to come to [facility] after a mechanical fall. She has been admitted to the intensive care unit for close monitoring and hourly neurochecks. #Mechanical fall without syncope resulting in a subarachnoid hemorrhage Per conversation with the neurosurgical physician, Dr. Beauchamp ([phone]) yest, patient is recommended for discharge as long as the pt has no neurological deficits and remains HDS. * Continue to monitor the patient for any neurological or focal deficits. * If the patient should clinically deteriorate or experienced worsening headache , nausea, lethargy or vomiting consider repeat CT without IV contrast. * Patient's family has been informed. #Generalized weakness. Patient feels gaining her strength back. She has needed a walker for ambulation. * Appreciate PT recs #Shoulder contusion. Patient may need a visiting nurse for services. Tylenol when necessary for pain relief. Local wound care for left humeral skin excoriation dressing changes with Adaptic every 24 hours. #Mild elevation in CK - RESOLVED Creatinine kinase level elevated to 200 on admission. Likely as a result of fall and prolonged immobility. * Repeat creatinine kinase level this morning WNL * Hold statin for now. #History of diabetes mellitus. * Accuchecks with Novolog SSI * Maintain blood sugars between 150 and 200. #History of hypertension At the time of admission the patient's blood pressure was elevated up to 151/75. Currently within a normal range. * Continue to monitor blood pressure. * Continue home medications this a.m. * Continue Norvasc 2.5 mg. #History of hyperlipidemia. The patient does take a statin 10 mg atorvastatin daily. * Cont to hold statin today due to elevated CK level on admission * May resume upon discharge as CK is normal today #Diet Heart Healthy #Code: Full Code Problem List: 1. Contusion, shoulder /upper arm 2. Concussion 3. Cervical strain 4. Fall 5. Contusion of wrist, right 6. Avulsion of skin of left elbow 7. Subarachnoid hemorrhage 8. Skin abrasion Pain Ratin Pain Location: 0 Pain Goal: Remain pain free Pain Plan: Tylenol Tomorrow's Labs & Rationales: None LAUREL MCGOVERN,[facility] 10/15/16 1358: Attending MD Review Statement Attending Statement Attending MD Statement: examined this patient, discuss w/resident/PA/[employer], agreed w/resident/PA/[employer], reviewed EMR data (avail), discussed with nursing, discussed with case mgmt, reviewed images, amended to note
[2016-10-15 08:52] VITALS: BP 120/64
--- NOTE | 2016-10-15 12:28 | NUR ---
Physical Therapy: Attempt made to see pt for PT; pt received in supine in NAD. Pt scheduled to be discharged home later today; pt reports she does not have to negotiate steps in her home and politely declines to participate in PT. Pt reports she has been ambulating with RW without difficulty; pt previously owns RW and home PT set-up upon d/c.
--- NOTE | 2016-10-15 13:19 | Discharge Summary ---
Visit Information Visit Dates Admission Date: 10/13/16 Discharge Date: 10/15/16 Hospital Course Course Attending Physician: RACHAEL MCGOVERN,[facility] Primary Care Physician: TAYLER MCGOVERN,[facility] Course: Ms. Bryan is an 86-year-old lady with a past medical history significant for DM, hypertension, hyperlipidemia, GERD, BPPV and an episode of diverticulitis who presented to the emergency department on 10/13/2016 after a mechanical fall resulting in a small subarachnoid hemorrhage. She has been admitted to the intensive care unit where the following problems were managed: #Mechanical fall without syncope resulting in a subarachnoid hemorrhage CT head revealed an increased density in a sulcus in the right parietal region, consistent with a small amount of subarachnoid hemorrhage. No subdural or epidural collections are demonstrated and no fractures or large scalp contusions. Per the conversation with the neurosurgical physician, Dr. Beauchamp, the extent of the patient's SAH was deemed miniscule and not significant enough for any urgent surgical interventions in the light of her clinical stability with no neurological deficits. Patient also remained hemodynamically stable during the hospital stay. Patient complained of a severe headache during one of the nights but neuro exam was grossly benign and stat head CT showed stable small right parietal subarachnoid hemorrhage with no new hemorrhage. #Generalized weakness. Patient initially felt weak but gained more strength through the hospitalization. She has needed a walker for ambulation. Per PT's recommendation , patient was discharged on home PT. #Shoulder contusion. Patient had contusion in the left shoulder and elbow from the mechanical fall. X -ray was only remarkable for moderate acromioclavicular arthrosis and possible mild arthrosis of glenohumeral joint with probable rotator cuff tear given the superior subluxation of the humeral head. There was also soft tissue calcification which may reflect old soft tissue trauma in the left elbow. Tylenol was given when necessary for pain relief. Local wound care for left humeral skin excoriation was provided with dressing changes with Adaptic every 24 hours. #Mild elevation in CK - RESOLVED Creatinine kinase level elevated to 200 on admission. Likely as a result of fall and prolonged immobility. Statin was held initially. Repeat creatinine kinase level returned to normal. #History of diabetes mellitus. Patient was placed on accuchecks with Novolog SSI #History of hypertension At the time of admission the patient's blood pressure was elevated up to 151/75. Currently within a normal range. Patient was continued on home medications including Norvasc 2.5 mg. #History of hyperlipidemia. The patient takes a statin 10 mg atorvastatin daily. This was initially held due to elevated CK level on admission but resumed upon discharge as CK returned to normal. Allergies: Coded Allergies: cephalexin (RASH 10/13/16) clonazepam ("KNOCKED ME OUT" 10/13/16) gabapentin (UNKNOWN REACTION 10/13/16) morphine (GI UPSET, "KNOCKED ME OUT" 10/13/16) Disposition Summary Disposition Principal Diagnosis: Subarachnoid hemorrhage Additional Diagnosis: Contussion Generalized weakness Discharge Disposition: home health services Discharge Instructions General Discharge Information Code Status: Full Code Patient's Diet: Diabetic diet Patient's Activity: As tolerated Follow-Up Instructions/Appts: Please follow up with PCP upon discharge. Please return to ER in case of worsening headache, weakness, lethargy, vision, speech (neurological deficiet) Please use walker or cane at home to ambulate. Local wound care for left arm tear, daily dressing change with Adaptic. Medications at Discharge Discharge Medications: Continue taking these medications: Ondansetron (Zofran Odt) 4 MG TAB.RAPDIS 1 Tablet SUBLINGUAL EVERY 6 HOURS NEEDED as needed for NAUSEA Qty = 15 Amlodipine (Norvasc) 2.5 MG TABLET 1 Tablet ORAL DAILY Qty = 30 Comments: LAST DOSE GIVEN 10/15/16 AT 9:00 AM Atorvastatin Calcium (Lipitor) 10 MG TABLET 1 Tablet ORAL DAILY Qty = 30 Comments: NOT GIVEN WHILE HOSPITALIZED Oxybutynin Chloride (Ditropan XL) 10 MG TAB.ER.24 1 Tablet ORAL DAILY Qty = 30 Comments: NOT GIVEN WHILE HOSPITALIZED Pantoprazole Sodium (Pantoprazole Sodium) 40 MG TABLET.DR 1 Tablet ORAL DAILY Qty = 30 Comments: NOT GIVEN WHILE HOSPITALIZED Metformin HCl (Metformin HCl ER) 500 MG TAB.ER.24 1 Tablet ORAL TWICE DAILY Qty = 30 Comments: NOT GIVEN WHILE HOSPITALIZED Copies To: TAYLER MCGOVERN,[place]
== END 2016-10-15 13:10 | disposition home health service (06) | DRG 87 ==
LOC: ERH 19:38 → ERHI 23:56 → CRI 23:56 → 2NA 23:56 → ENRESERV 10-14 00:46 → CRI 10-14 01:26 → 2NA 10-14 21:13
PROVIDERS: Physician Assistant Medical; Student in an Organized Health Care Education/Training Program; ADMIT Student in an Organized Health Care Education/Training Program
DX: S06.6X0A Traumatic subarachnoid hemorrhage without loss of consciousness, initial encounter (principal); E11.9 Type 2 diabetes mellitus without complications; I10 Essential (primary) hypertension; Z79.84 Long term (current) use of oral hypoglycemic drugs; W10.9XXA Fall (on) (from) unspecified stairs and steps, initial encounter; Z91.81 History of falling; Y93.9 Activity, unspecified; Y92.009 Unspecified place in unspecified non-institutional (private) residence as the place of occurrence of the external cause; E78.5 Hyperlipidemia, unspecified; S41.112A Laceration without foreign body of left upper arm, initial encounter; S40.012A Contusion of left shoulder, initial encounter
CPT/HCPCS: 2NAP; ERO; 73030-LT; 73080-LT; 82436; 90471; 90714; 93005; 93010; 97116-GO; 97161-GP; 97530-GO; J2405